=== PATIENT | male | born 1960 | race Caucasian/White ===

== ENCOUNTER 2017-01-24 09:09 | Day surgery (SDC) | payer BC ==
[2017-01-23 08:53] VITALS: BMI 32.3
[~2017-01-24 09:09] MED LIST: LACTATED RINGERS 1,000 ML IV SCH
[2017-01-24] MEDS ORDERED: LIDOCAINE 1% 20 ML VIAL (10MG/ML) FOR IV START SQ ONE (09:54)
[2017-01-24 10:07] VITALS: RESP 16; TEMP 97.8
[2017-01-24] MEDS ORDERED: PROPOFOL 10 MG/ML 20 ML VIAL IV ONE (10:40)
--- NOTE | 2017-01-24 11:17 | P.GSHP ---
History of Present Illness H&P Date: 01/24/17 Chief Complaint: Screening colonoscopy This is a 56-year-old male referred from Dr. Dhillon. Patient rents today for screening colonoscopy. Past Medical History Past Medical History: Hyperlipidemia, Skin Disorder Additional Past Medical History / Comment(s): fungal infection History of Any Multi-Drug Resistant Organisms: None Reported Additional Past Surgical History / Comment(s): wisdom teeth Past Anesthesia/Blood Transfusion Reactions: No Reported Reaction Smoking Status: Former smoker - Past Family History Mother Family Medical History: Cancer Additional Family Medical History / Comment(s): breast Medications and Allergies Home Medications Medication Instructions Recorded Confirmed Type Med For Fungal Infectina 1 tab PO DAILY 01/23/17 01/24/17 History Statin 1 tab PO DAILY 01/23/17 01/24/17 History Allergies Allergy/AdvReac Type Severity Reaction Status Date / Time No Known Allergies Allergy Verified 01/23/17 08:49 Surgical - Exam Vital Signs Temp Pulse Resp BP Pulse Ox 97.8 F 76 16 145/78 95 01/24/17 10:03 01/24/17 10:03 01/24/17 10:03 01/24/17 10:03 01/24/17 10:03 - General well developed, no distress - Eyes PERRL - ENT normal pinna - Neck no masses - Respiratory normal expansion - Cardiovascular Rhythm: regular - Abdomen Abdomen: soft, non tender Assessment and Plan Plan: We'll perform screening colonoscopy.
--- NOTE | 2017-01-24 11:36 | P.OP ---
Date of Procedure: 01/24/17 Preoperative Diagnosis: Screening colonoscopy Postoperative Diagnosis: Rectal polyp Procedure(s) Performed: Colonoscopy Implants: Anesthesia: MAC Surgeon: Osmany Mcgraw Pathology: other (Rectal polyp) Condition: stable Disposition: PACU Indications for Procedure: Operative Findings: Description of Procedure: The patient's placed on the endoscopy table in the lateral position. He received IV sedation. Digital rectal exam was performed which revealed no abnormalities. The prostate was symmetric without nodules. The flexible colonoscope was then placed patient anus passed throughout the entire colon. The cecum appeared normal. The ileocecal valve lesions. The scope was withdrawn. The ascending colon and transverse colon appeared normal. Ascending and sigmoid colon there was no evidence of significant diverticular changes. Scope was then brought back the rectum and a pocket polyp was seen. This was removed with the snare. The scope was then withdrawn from the patient.
[2017-01-24 11:49] VITALS: BP 120/72; PULSE 70
== END 2017-01-24 12:10 | disposition home or self-care (01) ==
LOC: ORWHC2ENDO 09:09
PROVIDERS: ATTEND Surgery
DX: Z12.11 Encounter for screening for malignant neoplasm of colon (principal); D12.8 Benign neoplasm of rectum; E78.5 Hyperlipidemia, unspecified; Z87.891 Personal history of nicotine dependence; B36.9 Superficial mycosis, unspecified; Z79.899 Other long term (current) drug therapy
CPT/HCPCS: 88305; 45385; J2704